=== PATIENT | male | born 1950 | race Caucasian/White ===

== ENCOUNTER 2018-09-12 10:27 | Emergency (ER) | payer BC, MEDICARE ==
[2018-09-12 11:40] VITALS: BP 167/101
--- NOTE | 2018-09-12 11:55 | UC ---
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 No loss of consciousness. He did sustain an approximately 2.5 cm laceration to the right forehead. - History Of Current Complaint Chief Complaint: UCLaceration Stated Complaint: HEAD LAC Time Seen by Provider: 09/12/18 11:42 Hx Obtained From: Patient Laceration Location: Head Mechanism Of Injury: Sharp Trauma Onset/Duration: Sudden Onset Severity: Mild Pain Intensity: 2 Aggravating Factors: Nothing - Allergies/Home Medications Allergies/Adverse Reactions: Allergies Allergy/AdvReac Type Severity Reaction Status Date / Time No Known Allergies Allergy Verified 09/12/18 11:33 Home Medications: Home Medications Omeprazole CAP (NF) [Prilosec CAP* 20 MG] 20 mg PO DAILY 09/12/18 [History Confirmed 09/12/18] PMH/Surg Hx/FS Hx/Imm Hx Previously Healthy: Yes - Surgical History Surgical History: Yes Surgery Procedure, Year, and Place: R hip replacement 2013 - Family History Known Family History: Positive: Non-Contributory - Social History Occupation: Retired Alcohol Use: Weekly Substance Use Type: None Smoking Status (MU): Never Smoked Tobacco Review of Systems All Other Systems Reviewed And Are Negative: Yes Skin: Positive: Other - 2.5 cm laceration above the right eyebrow. Is Patient Immunocompromised?: No Physical Exam Triage Information Reviewed: Yes Appearance: Well-Appearing, No Pain Distress, Well-Nourished Vital Signs: Initial Vital Signs Temp 97 F 09/12/18 11:34 Pulse 59 09/12/18 11:34 Resp 16 09/12/18 11:34 BP 167/101 09/12/18 11:34 Pulse Ox 98 09/12/18 11:34 Vital Signs Reviewed: Yes Eyes: Positive: Conjunctiva Clear - PERRLA, EOMI ENT: Positive: Hearing grossly normal, Pharynx normal, TMs normal, Uvula midline Neck: Positive: Supple, Nontender, No Lymphadenopathy Respiratory: Positive: Lungs clear, Normal breath sounds, No respiratory distress, No accessory muscle use Cardiovascular: Positive: RRR, No Murmur, Pulses Normal, Brisk Capillary Refill Musculoskeletal Exam: Normal Musculoskeletal: Positive: Strength Intact, ROM Intact Neurological: Positive: Alert, Muscle Tone Normal - Cranial nerves II through XII are intact, good arm and leg strength against resistance. Psychological Exam: Normal Skin: Positive: Other - 2.5 cm vertical laceration just above the right eyebrow. Bleeding is controlled. Laceration Repair - Laceration Repair 1 Description: Linear Laceration Size After Repair: Length (cm) - 2.5 cm. Modified For Repair: No Type Injection: Local Anesthesia Used: 2.0% Lido Additive Used (in ml): Epi Cleansing Completed Via Routine Prep: Yes Irrigation With Pressure Irrigation Device: Yes Closure Material: Sutures - Sutured placed numbered for using 50 prolene Closure Method: Single Layer Suture Of: SQ Suture Type: Prolene Laceration Course/Dx - Course/Dx Course Of Treatment: The patient tolerated the procedure well. - Diagnosis Provider Diagnosis: Laceration of forehead Discharge - Sign-Out/Discharge Documenting (check all that apply): Patient Departure All imaging exams completed and their final reports reviewed: No Studies - Discharge Plan Condition: Fair Disposition: HOME Patient Education Materials: Care For Your Stitches (DC), Head Injury (ED) Referrals: Huang Phelan MD [Primary Care Provider] - Additional Instructions: Follow up with your primary care provider in 5 days for suture removal. Go to the ER if you develop headache with vomiting, change in your normal mental statues, vomiting, confusion. - Billing Disposition and Condition Condition: FAIR Disposition: Home - Attestation Statements Provider Attestation: Per institutional requirements, I have reviewed the chart, however, I was not consulted specifically or made aware of this patient by the midlevel provider. I did not personally evaluate, interact with , or disposition this patient.
[2018-09-12] MEDS ORDERED: Lidocaine 1% w EPI 1:100,000* 30 ML VIAL INJ ONE ×2 (11:57→12:01)
[2018-09-12] MEDS ORDERED: Lidocaine 2% w EPI 1:100,000* 20 ML VIAL INJ ONE (12:07)
== END 2018-09-12 12:46 | disposition home or self-care (01) ==
LOC: UCEAST 10:27
DX: S01.81XA Laceration without foreign body of other part of head, initial encounter (principal); W22.8XXA Striking against or struck by other objects, initial encounter; Y93.89 Activity, other specified; Y92.019 Unspecified place in single-family (private) house as the place of occurrence of the external cause; Y99.0 Civilian activity done for income or pay
CPT/HCPCS: 12011; 99211; G0463

== ENCOUNTER 2018-09-16 14:04 | Emergency (ER) | payer MEDICARE ==
--- NOTE | 2018-09-16 14:08 | UC ---
Laceration HPI - HPI Summary HPI Summary: 67 yo male presents for suture removal forehead placed 5 days ago. He has had no issues such as bleeding, drainage, pain, or swelling. No fever. - History Of Current Complaint Stated Complaint: STICTHES REMOVED Time Seen by Provider: 09/16/18 14:07 Hx Obtained From: Patient Laceration Location: Face Mechanism Of Injury: Blunt Trauma Onset/Duration: Sudden Onset - Allergies/Home Medications Allergies/Adverse Reactions: Allergies Allergy/AdvReac Type Severity Reaction Status Date / Time No Known Allergies Allergy Verified 09/16/18 14:14 Home Medications: Home Medications Amoxicillin 250 mg PO DAILY WITH MEAL 09/16/18 [History Confirmed 09/16/18] PMH/Surg Hx/FS Hx/Imm Hx GI/ History: Gastroesophageal Reflux - Surgical History Surgical History: Yes Surgery Procedure, Year, and Place: R hip replacement 2013 - Family History Known Family History: Positive: Non-Contributory - Social History Occupation: Retired Lives: With Family Alcohol Use: Weekly Substance Use Type: None Smoking Status (MU): Never Smoked Tobacco Review of Systems All Other Systems Reviewed And Are Negative: Yes Constitutional: Positive: Negative Skin: Positive: Other - [address] right eyebrow Respiratory: Positive: Negative Cardiovascular: Positive: Negative Neurovascular: Positive: Negative Neurological: Positive: Negative Psychological: Positive: Negative Physical Exam - Summary Physical Exam Summary: GENERAL: NAD. WDWN. No pain distress. SKIN: RIGHT FOREHEAD/EYEBROW: Vertical laceration well healed and approximated with [address] No erythema, edema, drainage, or tenderness. CHEST: No accessory muscle use. Breathing comfortably and in no distress. CV: Pulses intact. Cap refill <2seconds NEURO: Alert. PSYCH: Age appropriate behavior. Triage Information Reviewed: Yes Vital Signs: Vital Signs: Temp Pulse Resp BP Pulse Ox 98.4 F 65 18 162/85 99 09/16/18 14:10 09/16/18 14:10 09/16/18 14:10 09/16/18 14:10 09/16/18 14:10 Vital Signs Reviewed: Yes Laceration Course/Dx - Course/Dx Course Of Treatment: 4 sutures removed without difficulty. Laceration well healed and approximated. - Diagnosis Provider Diagnosis: Visit for suture removal Discharge - Sign-Out/Discharge Documenting (check all that apply): Patient Departure All imaging exams completed and their final reports reviewed: No Studies - Discharge Plan Condition: Stable Disposition: HOME Patient Education Materials: Stitches Removal (ED) Referrals: Huang Phelan MD [Primary Care Provider] - Additional Instructions: If you develop a fever, shortness of breath, chest pain, new or worsening symptoms - please call your PCP or go to the ED immediately. - Billing Disposition and Condition Condition: STABLE Disposition: Home
[2018-09-16 14:14] VITALS: BP 162/85
== END 2018-09-16 14:20 | disposition home or self-care (01) ==
LOC: UCEAST 14:04
DX: Z48.02 Encounter for removal of sutures (principal); K21.9 Gastro-esophageal reflux disease without esophagitis

== ENCOUNTER 2023-09-24 12:37 | Inpatient (IN) ==
[2023-09-24 13:07] LABS: ABS Basophils 0.1 10^3/uL (0.0-0.1); ABS Eosinophils 0.2 10^3/uL (0.0-0.5); ABS Lymphocytes 1.4 10^3/uL (1.0-4.8); ABS Neutrophils 4.3 10^3/uL (1.5-7.6); Eosinophil % 3.4 %; Hematocrit 45.9 % (38-53); Hemoglobin 15.8 g/dL (13.2-16.3); Lymphocyte % 20.3 %; Mean Corpuscular Hemoglobin 29.8 pg (27-33); Mean Corpuscular Hgb Conc 34.5 g/dL (31-36); Mean Corpuscular Volume 86.3 fL (80-97); Mean Platelet Volume 8.4 fL (7.5-11.2); Nucleated Red Blood Cells % 0.1 %/100WBC (0.0-0.8); Platelet Count 223 10^3/uL (150-450); Red Blood Count 5.32 10^6/uL (4.06-5.63); Red Cell Distribution Width 13.3 % (12-17); White Blood Count 7.1 10^3/uL (3.6-10.2)
[2023-09-24] MEDS: Aspirin EC 325 mg TAB.EC PO ONE (13:09)
[2023-09-24 13:20] LABS: INR 1.05 (0.83-1.13)
[2023-09-24 13:38] LABS: Albumin 4.3 g/dL (3.2-5.2); Albumin/Globulin Ratio 1.9 (1-3); Creatinine, Serum 0.93 mg/dL (0.67-1.17); Globulin 2.3 g/dL (2-4); Potassium 4.2 mmol/L (3.5-5.0); Total Protein 6.6 g/dL (6.4-8.9); eGFR CKD-EPI 86.2 (>60)
[2023-09-24] MEDS ORDERED: Midazolam 5 mg/5 ml VIAL 1 mg/ml 5 ml VIAL (5 mg) ONE ×2 (13:47→14:25)
[2023-09-24] MEDS ORDERED: fentaNYL 100 mcg/2 ml 50 MCG/ML VIAL ONE ×2 (13:47→14:25)
[2023-09-24] MEDS ORDERED: Heparin 2 UNITS/ML 1000 mls 2,000 ML IV ONE (13:48)
[2023-09-24] MEDS ORDERED: nitroGLYCERIN DRIP 25,000 MCG/250 ML BTL ONE (13:48)
[2023-09-24] MEDS ORDERED: VERAPAMIL 2.5 MG/ML 2 ML VIAL ** 5 mg/2 ml ONE ×2 (13:48→14:25)
[2023-09-24] MEDS ORDERED: Lidocaine 1% MPF 5 ML VIAL ONE (13:48)
[2023-09-24] MEDS ORDERED: Heparin 1,000 UNIT/ML 10 ml (10,000 UNITS) CATHLAB/DIALYSIS ONE ×2 (13:48→14:25)
[2023-09-24] MEDS ORDERED: Heparin DRIP 25,000 UNITS BAG 25,000 UNITS/250 ML BAG IV SCH (14:15)
[2023-09-24] MEDS ORDERED: Iohexol 350 (CONTRAST) 200 ML MDV IV ONE (14:26)
[2023-09-24 14:35] LABS: High Sensitivity Troponin 1 Hr 2067 pg/mL (<20)
[2023-09-24] MEDS ORDERED: Bivalirudin 250 MG VIAL ONE ×2 (14:52→15:58)
[2023-09-24] MEDS ORDERED: Heparin 5000 UNITS/ML 1 mL VIAL IV SCH (15:00)
[2023-09-24] MEDS ORDERED: Eptifibatide IV (Load dose) 2 MG/ML 10 ml VIAL ONE ×2 (15:42→15:55)
[2023-09-24] MEDS ORDERED: fentaNYL 250 mcg/5 ml 50 MCG/ML 5 ml VIAL (250 MCG) ONE (15:42)
[2023-09-24] MEDS: NS 0.9% 1000 ml BAG 1,000 ML IV SCH (16:30)
[2023-09-24] MEDS: Sulfur Hexaflouride MICROSPHR 25 MG VIAL IV ONE (18:38)
[2023-09-25 03:36] LABS: ABS Basophils 0.1 10^3/uL (0.0-0.1); ABS Eosinophils 0.2 10^3/uL (0.0-0.5); ABS Lymphocytes 1.4 10^3/uL (1.0-4.8); ABS Monocytes 1.1 10^3/uL (0.0-1.1); ABS Neutrophils 5.4 10^3/uL (1.5-7.6); Eosinophil % 2.4 %; Hematocrit 42.9 % (38-53); Hemoglobin 14.9 g/dL (13.2-16.3); Lymphocyte % 17.5 %; Mean Corpuscular Hgb Conc 34.7 g/dL (31-36); Mean Corpuscular Volume 86.4 fL (80-97); Mean Platelet Volume 8.3 fL (7.5-11.2); Platelet Count 227 10^3/uL (150-450); Red Blood Count 4.96 10^6/uL (4.06-5.63); Red Cell Distribution Width 13.3 % (12-17); White Blood Count 8.2 10^3/uL (3.6-10.2)
[2023-09-25 04:12] LABS: Albumin/Globulin Ratio 1.8 (1-3); Calcium 8.8 mg/dL (8.6-10.3); Creatinine, Serum 0.84 mg/dL (0.67-1.17); Globulin 2.2 g/dL (2-4); HDL Cholesterol 37.1 mg/dL; Potassium 3.8 mmol/L (3.5-5.0); Total Bilirubin 3.2 mg/dL (0.2-1.0); Total Protein 6.2 g/dL (6.4-8.9); eGFR CKD-EPI 91.5 (>60)
[2023-09-25 08:19] LABS: CKMB ng/mL 24.9 ng/mL (0.6-6.3)
[2023-09-25] MEDS ORDERED: Sulfur Hexaflouride MICROSPHR 25 MG VIAL ONE (11:01)
[2023-09-26 04:30] LABS: ABS Basophils 0.1 10^3/uL (0.0-0.1); ABS Eosinophils 0.3 10^3/uL (0.0-0.5); ABS Lymphocytes 1.9 10^3/uL (1.0-4.8); ABS Neutrophils 4.5 10^3/uL (1.5-7.6); ABS Nucleated RBC 0.01 10^3/ul; Eosinophil % 3.2 %; Hematocrit 43.2 % (38-53); Mean Corpuscular Hemoglobin 29.8 pg (27-33); Mean Corpuscular Hgb Conc 34.6 g/dL (31-36); Mean Corpuscular Volume 86.2 fL (80-97); Mean Platelet Volume 8.4 fL (7.5-11.2); Nucleated Red Blood Cells % 0.1 %/100WBC (0.0-0.8); Platelet Count 223 10^3/uL (150-450); Red Blood Count 5.02 10^6/uL (4.06-5.63); Red Cell Distribution Width 13.1 % (12-17); White Blood Count 7.8 10^3/uL (3.6-10.2)
[2023-09-26 04:55] LABS: Calcium 8.9 mg/dL (8.6-10.3); Creatinine, Serum 0.89 mg/dL (0.67-1.17); Phosphorus 2.8 mg/dL (2.5-5.0); Potassium 4.1 mmol/L (3.5-5.0); eGFR CKD-EPI 89.9 (>60)
[2023-09-26 12:29] VITALS: BP 143/84
== END 2023-09-26 12:00 | disposition left against medical advice (07) | DRG 322 ==
LOC: ED 12:37 → CHICARD 14:43 → ICU 16:45
PROVIDERS: ADMIT Internal Medicine Critical Care Medicine